=== PATIENT | male | born 1990 | race Caucasian/White ===

== ENCOUNTER → 2016-10-27 | Outpatient (CLI) | payer OTHER ==
[2016-10-27 10:10] LABS: HEMOGLOBIN 14.7 gm/dl (14.0-17.5); RED BLOOD COUNT 4.9 M/UL (4.20-5.50); WHITE BLOOD COUNT 5.9 K/UL (4.5-11.0)
[2016-10-27 10:33] LABS: BUN/CREATININE RATIO 14 (0-10)
== END ==
LOC: LAB 08:41
PROVIDERS: Nurse Practitioner Family
DX: Z13.220 Encounter for screening for lipoid disorders (principal); R53.83 Other fatigue
CPT/HCPCS: 80053; 80061; 84443; 85025

== ENCOUNTER 2016-12-03 06:06 | Emergency (ER) | payer OTHER ==
[2016-12-03 07:40] LABS: HEMOGLOBIN 16.2 gm/dl (14.0-17.5); RED BLOOD COUNT 5.55 M/UL (4.20-5.50); WHITE BLOOD COUNT 10.7 K/UL (4.5-11.0)
[2016-12-03 07:49] LABS: BUN/CREATININE RATIO 9 (0-10)
[2016-12-03 10:40] LABS: ADENOVIRUS F 40/41 Not Detected (Negative); ASTROVIRUS Not Detected (Negative); CAMPYLOBACTER Not Detected (Negative); CLOSTRIDIUM DIFFICILE TOX A/B Not Detected (Negative); E.COLI 0157 Not Detected (Negative); ENTAMOEBA HISTOLYTICA Not Detected (Negative); ENTEROAGGREGATIVE E.COLI (EAEC Not Detected (Negative); ENTEROPATHOGENIC E.COLI (EPEC) Not Detected (Negative); ENTEROTOXIGENIC E.COLI (ETEC) Not Detected (Negative); GIARDIA LAMBLIA Not Detected (Negative); NOROVIRUS GI/GII Not Detected (Negative); PLESIOMONAS SHIGELLOIDES Not Detected (Negative); ROTOVIRUS A Not Detected (Negative); SALMONELLA Not Detected (Negative); SAPOVIRUS Not Detected (Negative); SHIG/ENTEROINVAS.ECOLI (EIEC) Not Detected (Negative); SHIGA-LIK TOX.PRO.E.COLI (STEC Not Detected (Negative); VIBRIO Not Detected (Negative); VIBRIO CHOLERAE Not Detected (Negative); YERSINIA ENTEROCOLITICA Not Detected (Negative)
[2016-12-03 12:12] LABS: CRYPTOSPORIDIUM DETECTED (Negative)
== END 2016-12-03 09:45 | disposition home or self-care (01) ==
LOC: ER1 06:06
PROVIDERS: Physician Assistant
DX: R10.84 Generalized abdominal pain (principal); R19.7 Diarrhea, unspecified; R11.0 Nausea; R51 Headache; R53.81 Other malaise; I10 Essential (primary) hypertension; Z79.899 Other long term (current) drug therapy; Z90.89 Acquired absence of other organs
CPT/HCPCS: 36415; 80053; 81001; 82150; 83690; 85025; 87177; 87507; 89055; 96372; 96374; 99284; J0500; J2405; J7030; J7050; Q9962

== ENCOUNTER 2020-11-02 12:08 | Emergency (ER) | payer OTHER ==
[2020-11-02 13:51] LABS: HEMOGLOBIN 15.5 gm/dl (14.0-17.5); RED BLOOD COUNT 4.93 M/UL (4.20-5.50); WHITE BLOOD COUNT 5.3 K/UL (4.5-11.0)
[2020-11-02 14:14] LABS: BUN/CREATININE RATIO 12 (0-10)
[2020-11-02] MEDS ORDERED: SUDAFED 60 MG T60 MG PO (14:48)
[2020-11-02] MEDS ORDERED: IBUPROFEN600 MG PO (14:48)
[2020-11-02] MEDS ORDERED: ZYRTEC10 MG PO (14:48)
[2020-11-02] MEDS ORDERED: FLONASE 0.05% N16 GM (14:48)
== END 2020-11-02 14:55 | disposition home or self-care (01) ==
LOC: ER1 12:08
PROVIDERS: Physician Assistant Medical
DX: R51.9 Headache, unspecified (principal); I10 Essential (primary) hypertension; Z90.89 Acquired absence of other organs; Z79.899 Other long term (current) drug therapy
CPT/HCPCS: 70450; 80053; 85025; 85652; 86140; 96374; 96375; 99284; J2765; J2930